=== PATIENT | male | born 1960 | race Caucasian/White ===

== ENCOUNTER 2017-03-12 01:13 | Inpatient (IN) | payer OTHER ==
[~2017-03-12] VITALS: Ht 182.9 cm; Wt 83.9 kg
[~2017-03-12 01:13] MED LIST: CELEXA20 M1 PO
--- NOTE | 2017-03-12 09:44 | Operative Report ---
See Addendum Operative/Inv Procedure Report Surgery Date: 03/12/17 Name of Procedure: Left total knee arthroplasty Pre-Operative Diagnosis: Left knee degenerative joint disease Post-Operative Diagnosis: Left knee degenerative joint disease Estimated Blood Loss: 50ml to 100ml Surgeon/Vacuum Cleaner Repairer: ANDREA HELMS MD Anesthesia: block, spinal Implants: Rajput and nephew Size 7 left cruciate retaining legion Oxinium femoral component Jayne II biconvex patellar component size 23 mm Jayne II left nonporous tibial baseplate size 7 Size 7-8 9 mm legion CR XLPE high flexion articular insert Drains: Hemovac Complications: None Condition: Stable to PACU Operative Indication: This is a 57 year old male who has bilateral knee degenerative joint disease that has failed conservative care. Risks and benefits of the procedure were discussed with the patient at length. Risks include but are not limited to nerve damage, muscle damage, infection, blood loss, blood clots, pulmonary embolus, and even . The patient agreed to the above risks and elected to proceed with surgery. Operative/Procedure Note Note: The patient was taken to the operating room. Anesthesia was induced after the timeout was performed. The lower extremity was prepped and draped in the normal sterile fashion. IV antibiotics were given prior to incision. The site marking was visualized prior to incision. After the leg was prepped and draped, an esmarch was used to exsanguinate the extremity. The tourniquet was inflated. A midline incision was made proximal to the patella extending down to the tibial tubercle. A medial parapatellar approach was then made. The skin was retracted and the extensor mechanism was incised. The knee was taken down into full extension. The patellar fat pad was resected. The medial retinaculum was then taken down. The synovium over the distal femur was then resected. The patella was everted and the knee was flexed up. The lateral meniscus was then excised. The ACL was removed. A drill was then used to open up the distal femur. The intramedullary guide was then applied. A 6 distal femoral cut was then made. The femur was then sized. The chamfer guide was then applied. The anterior, posterior, and chamfer cuts were then made while protecting the patellar tendon with a Hohmann retractor in the medial collateral ligament with a Z retractor. A pickle fork was then used to deliver the tibia. The extramedullary tibial guide was then applied. The proximal tibial cut was made. The medial and lateral meniscus were then excised. The osteophytes were removed with a Rongeur. The tibia was sized and the trial base plate was then pinned in place. A trial femoral component was placed and a trial polyethylene insert was then applied as well. The knee was taken through a range of motion and was noted to be quite stable. The patella was then everted, sized, and then reamed. A trial patellar component was placed and the knee was taken through range of motion. The patella was noted to be quite stable. All trial instruments were then removed. The knee was copiously irrigated. Retractors were placed in the final components were then cemented in. A trial polyethylene insert was then placed. After the cement was hardened, the excess cement was removed. The trial poly-insert was then removed. The knee was copiously irrigated. The final poly insert was inserted. The tourniquet was let down. Any bleeding vessels were identified and cauterized. A 1/8 inch Hemovac drain was then placed. The extensor mechanism was closed with #1 Vicryl suture in a simple interrupted fashion. The skin was closed with 2-0 Vicryl suture. A running subcuticular 4-0 Monocryl stitch was then placed. Dermabond was applied. A dry sterile dressing was placed and patient was transferred to PACU in stable condition.
--- NOTE | 2017-03-12 09:56 | Admission Core Measures ---
Admission Meds I reviewed the following Meds: Current Medications Sig/[place] Start time Last Medication Dose Stop Time Status Admin Clindamycin 600 MG ONCE 03/12 0000 NR (Cleocin) 03/12 2359 Dextrose/Water 50 ML (D5W) Ropivacaine 500 ML ONCE ONE 03/12 0945 AC (NAROPIN) 03/14 1144 ON-Q Ball 1 BAG Acute Coronary Syndrome Inclusion Criteria ACS Diagnosis No Inpatient Core Measures LDL Reminder: If No, please order W/I first 24hr of stay Congestive Heart Failure Inclusion Criteria CHF Diagnosis No Cerebrovascular accident Inclusion Criteria CVA/TIA Diagnosis No Inpatient Core Measures Bedside Swallow Eval Reminder: If BSE failed, place ST order Antithrombotic Reminder: Order Antithrombotic Medication by end of day 2 Antithrombotic Reminder: Document Reason Antithrombotic Not ordered by end of day 2 AFIB/Flutter Reminder: If Present, add to problem list AFIB/Flutter Reminder: Order Anticoag Medication for pts with AFIB/Flutter Atherosclerosis Reminder: If Present, add to problem list LDL Reminder: If No, please order W/I first 24hr of stay PT Order Reminder: If No, please order Venous thromboembolism Inpatient Core Measures VTE Risk Factors: Age > 40, Surgery No [facility] VTE prophylaxis d/t No contraindications No VTE Pharm Prophylaxis d/t No contraindications Inclusion Criteria - Per Current guidelines, there needs to be overlap - treatment for the first 5 days of Warfarin therapy. - Parenteral Anticoagulation (IV or SC) needs to be - given along with Warfarin therapy. VTE Diagnosis No VTE Type NONE VTE Confirmed by (Test) NONE Problem List As ranked by this Provider includes Assessment & Plan 1. Arthritis of left knee HOME MEDS Home Med List Citalopram Hydrobromide (Celexa) 20 MG TABLET 1 20MG PO DAILY DEPRESSION ( Reported)
--- NOTE | 2017-03-12 10:01 | Surgical Discharge Summary ---
Visit Information Visit Dates Admission Date: 03/12/17 History of Present Illness Chief Complaint: L knee pain 2/2 osteoarthritis Medical History Musculoskeletal: osteoarthritis Psychiatric: depression Surgical History Pertinent Surgical History: knee replacement (left) Review of Systems: see [facility] Hospital Course Course Attending Physician: ANDREA HELMS MD Primary Care Physician: AILYN THORNE MD Hospital Course: pt underwent a left total knee arthroplasty for osetoarthritis on 03/12. surgery went without complications, a drain was placed which was pulled on POD# 1. he did well with PT, VSS, afebrile, stable labs post op, pain controlled. He was deemed stable for discharge after and uneventful post operative course Complications: none Allergies: Coded Allergies: erythromycin base ([facility] 03/11/17) penicillin G ([facility] 03/11/17) Disposition Summary Disposition Principal Diagnosis: primary unilateral osteoarthritis of the L knee Additional Diagnosis: sp L TKA Discharge Disposition: home health services Discharge Instructions General Discharge Information Code Status: Full Code Patient's Diet: regular Patient's Activity: as tolerated Follow-Up Instructions/Appts: dry dressing on knee daily. watch for signs of infection, severe pain, drainage form the knee, fever or flu like illness. work on ROM and ambulation with PT follow up in the office in about 10 days post op.
[2017-03-12] MEDS ORDERED: PERCOCET 5-3251 EACH PO (10:03)
[2017-03-12] MEDS ORDERED: LOVENOX40 MG/0.1 SC (10:03)
--- NOTE | 2017-03-12 10:06 | Patient Discharge Instructions ---
Discharge Instructions General Discharge Information You were seen/treated for: L knee osteoarthritis You had these procedures: L total knee arthroplasty Watch for these problems: Increasing pain despite the use of pain medicaiton. Increasing redness, warmth, and swelling. Drainage of any type from incision. Inability to bear weight on left leg. Persistent nausea and vomitting. Inability to pass gas or move bowels. Fever greater than 101.5 degrees Other wound care: Keep wound clean and dry. A daily dry dressing change is recommended. Special Instructions: dry dressing on knee daily. watch for signs of infection, severe pain, drainage form the knee, fever or flu like illness. work on ROM and ambulation with PT follow up in the office in about 10 days post op. Please wear knee immobilizer while walking around or standing with the on Q catheter still in place (catheter located just above your knee). Catheter will be removed 03/14/2017. The knee immbolizer is to help protect you against falling in the event that there is weakness in your leg as a result of the medication being infused by the catheter. Diet Continue normal diet: Yes Activity Full Activity/No Limits: No Activity Self Limited: Yes Acute Coronary Syndrome Inclusion Criteria At DC or during hospital stay patient has or had the following: ACS DIAGNOSIS No Discharge Core Measures Meds if any: Prescribed or Continued at Discharge Meds if any: NOT Prescribed or Continued at Discharge Congestive Heart Failure Inclusion Criteria At DC or during hospital stay patient has or had the following: CHF DIAGNOSIS No Discharge Core Measures Meds if any: Prescribed or Continued at Discharge Meds if any: NOT Prescribed or Continued at Discharge Cerebrovascular accident Inclusion Criteria At DC or during hospital stay patient has or had the following: CVA/TIA Diagnosis No Discharge Core Measures Meds if any: Prescribed or Continued at Discharge Meds if any: NOT Prescribed or Continued at Discharge Venous thromboembolism Inclusion Criteria VTE Diagnosis No VTE Type NONE VTE Confirmed by (Test) NONE Discharge Core Measures - Per Current guidelines, there needs to be overlap - treatment for the first 5 days of Warfarin therapy. - If discharged on Warfarin prior to 5 days of - overlap therapy, the patient will need to be - assessed for post discharge needs including - *Post discharge parental anticoagulation - *Warfarin and/or parental anticoagulation education - *Follow up date to check INR post discharge At least 5 days overlap therapy as Inpatient No Meds if any: Prescribed or Continued at Discharge Note: Overlap Therapy is Warfarin and Anticoagulant Meds if any: NOT Prescribed or Continued at Discharge
[2017-03-12 14:15] VITALS: BP 132/84
--- NOTE | 2017-03-12 16:06 | PN- Orthopedic ---
Subjective Subjective: POC: No acute post operative events reported. Patient resting comfortably at the present time. No complaints of chest pain, shortness of breath and difficulty breathing. No reports of nausea and vomitting. Had ball catheter removed post operatively, yet to void. Has yet to ambulate with physical therapy. Objective Vital Signs and I&Os Vital Signs Date Time Temp Pulse Resp B/P B/P Pulse O2 O2 Flow FiO2 Mean Ox Delivery Rate 03/12 1415 98.4 90 18 132/84 95 Room Air Intake & Output 03/12 1600 03/12 0800 03/12 0000 03/11 1600 03/11 0800 03/11 0000 Intake Total Output Total Balance Patient 185 lb 185 lb Weight Physical Exam: General: No acute distress, oriented x3 Cardiac: RRR, s1s2 Pulm: CTA bialterally, non-labored respiratory effort Abd: Non-distended Extremities: Moves all extremities, distal sensation intact, skin warm and well perfused, dp pulses palpable. Calves soft and non-tender Surgical site: Left knee, Dressing dry and intact, on Q in place with no evidence of leak. ZARINA drain with small amount of sanguinous drainage Assessment/Plan Assessment/Plan Assessment: This is a 57 year old male, POD 0, s/p L TKR. PMH significant for depression and anxiety. Plan: : Due to void 10 pm Activity: OOB with PT, WBAT, on-Q in place, knee immobilizer if quad function impaired Follow up labs: CBC, BEP in am Dep/anxiety: Continue celexa, prn ativan Abx ppx: Clinda 600 x2 additional doses DVT ppx: Lovenox 40 daily Bowel Regimen: PRN colace, miralax, senna Pain Regimen: Do not exceed greater than 4g acetaminophen in 24 hour period Will discuss with Dr. Tran Core Measures/Miscellaneous Venous Thromboembolism VTE Risk Factors: Age > 40, Surgery VTE Contraindications: No Contraindications VTE Diagnosis: No VTE Type: NONE VTE Confirmed by (Test): NONE Beta Fernanda Is Beta Fernanda a Home Med? No Antibiotics Is Patient on Antibiotics? Yes If Yes: prophylaxis
[2017-03-12 16:09] VITALS: BP 118/72
[2017-03-12 18:50] VITALS: BP 118/72
--- NOTE | 2017-03-12 20:21 | NUR ---
14:15- PT ARRIVED TO FLOOR VIA STRETCHER FROM PACU. REPORT REC'D FROM FRANCO FUEL TANK SEALER AND TESTER. PT HAD L TKR. L KNEE WITH ZARINA DRAIN AND ON Q PUMP AT 10 ML/HR. BURCH REMOVED AT 1400. PT ARRIVED A/V/OX3. DRESSING C,D,I. VSS. ORIENTED TO ROOM AND CALL LIGHT FOR ASSIST.
[2017-03-12 22:12] VITALS: BP 126/82
[2017-03-13 04:00] VITALS: BP 124/74
[2017-03-13 07:59] LABS: ABSOLUTE BASOPHIL COUNT 0 /CUMM (0.0-0.2); ABSOLUTE EOSINOPHIL COUNT 0 /CUMM (0.0-0.7); ABSOLUTE GRANULOCYTE CT 8.5 /CUMM (1.4-6.5); ABSOLUTE LYMPH COUNT 1.6 /CUMM (1.2-3.4); ABSOLUTE MONOCYTE COUNT 1.1 /CUMM (0.10-0.60); BASOPHIL % 0.3 % (0.0-2.0); EOSINOPHIL % 0.2 % (0-5); GRANULOCYTE % 75.4 % (42.2-75.2); HEMATOCRIT 30.8 % (42-52); MEAN CORPUSCULAR HGB CONC 33.5 G/DL (33.0-37.0); MEAN CORPUSCULAR VOLUME 92.4 FL (80.0-94.0); MEAN PLATELET VOLUME 7.2 FL (7.4-10.4); PLATELET COUNT 376 /CUMM (130-400); RBC DISTRIBUTION WIDTH 12.4 % (11.5-14.5); RED BLOOD CELL CT 3.33 /CUMM (4.70-6.10); WHITE BLOOD CELL COUNT 11.3 /CUMM (4.8-10.8)
--- NOTE | 2017-03-13 08:47 | PN- Orthopedic ---
See Addendum Subjective Subjective: No acute overnight events reported. Patient states that he was unable to sleep due to noise but that pain was well managed. He has yet to ambulate with PT, but he states that he is potentially interested in home discharge today. He presently denies chest pain, shortness of breath and difficulty breathing. He denies nausea and vomitting and has been tolerating diet. He has been voiding without difficulty. Objective Vital Signs and I&Os Vital Signs Date Time Temp Pulse Resp B/P B/P Pulse O2 O2 Flow FiO2 Mean Ox Delivery Rate 03/13 0400 98.2 78 20 124/74 98 Room Air 03/12 2212 97.7 88 20 126/82 95 03/12 2005 Room Air 03/12 1850 98.2 97 20 118/72 95 03/12 1609 98.0 89 20 118/72 97 03/12 1415 98.4 90 18 132/84 95 Room Air Intake & Output 03/13 1600 03/13 0800 03/13 0000 03/12 1600 03/12 0800 03/12 0000 Intake Total 420 Output Total 515 300 Balance -515 120 Intake, IV 300 Intake, Oral 120 Output, 65 100 Drainage Output, Urine 450 200 Patient 185 lb Weight Physical Exam: General: Alert and oriented x3, no acute distress Cardiac: RRR, s1s2 Pulm: CTA bilaterally, non-labored respiratory effort Abdomen: Non-tender, non-distended Extremities: Moves all extremities, distal sensation intact. Skin warm and well perfused. DP pulses palpable bialterally, Bilateral calves soft and non- tender. Surgical site: Left knee, dressing dry and intact, onQ in place with no evidence of leak. SILVIO holding suction, approximately 165 cc sanguinous drainage overnight Assessment/Plan Assessment/Plan This is a 57 year old male POD 1, s/p L TKR. PMH significant for depression and anxiety. -Continue home medications -OOB with PT, wbat, stairs today -If pt interested in dc to home today, will dc on Q -po pain medication only today unless pt staying overnight and iv required for breakthrough -DC silvio drain -Continue diet as tolerated -DC iv fluids -Follow up labs -Lovenox daily for dvt ppx -Will isreal Tran Core Measures/Miscellaneous Venous Thromboembolism VTE Risk Factors: Age > 40, Surgery VTE Contraindications: No Contraindications VTE Diagnosis: No VTE Type: NONE VTE Confirmed by (Test): NONE Beta Fernanda Is Beta Fernanda a Home Med? No Antibiotics Is Patient on Antibiotics? Yes If Yes: prophylaxis
[2017-03-13] MEDS ORDERED: HYDROCODON-ACE1 EAC2 PO (11:02)
== END 2017-03-13 13:55 | disposition home health service (06) | DRG 470 ==
LOC: SDA 01:13 → ENRESERV 12:49 → ENTRNSPT 13:56 → 2NA 14:13 → EDTRNSPTSTS 14:22 → CMPTRNSPT 15:10 → ENPENDDIS 03-13 11:25 → 2NA 03-13 13:55
PROVIDERS: Physician Assistant Surgical; ADMIT Orthopaedic Surgery
PROC: 0SRD0J9 Replacement of Left Knee Joint with Synthetic Substitute, Cemented, Open Approach (ICD-10-PCS; principal; 2017-03-12)
DX: M17.12 Unilateral primary osteoarthritis, left knee (principal); F32.9 Major depressive disorder, single episode, unspecified; F41.9 Anxiety disorder, unspecified
CPT/HCPCS: 2NAP; 36415; 82436; 87086; 97116-GO; 97161-GP; 97530-GO; J0131; J1650; J1885; J2405; J2550; J2795